=== PATIENT | male | born 1995 | race American Indian/Alaskan Native ===

== ENCOUNTER 2018-06-02 23:56 | Emergency (ER) | payer MEDICAID, OTHER ==
[2018-06-02 23:56] VITALS: BMI 21.4
[2018-06-03 00:10] VITALS: BP 124/66; PULSE 88; RESP 20; TEMP 98.2; O2SAT 97
[2018-06-03] MEDS ORDERED: Oxycodone/Acetaminophen 5/325 mg Tab PO STA (00:29)
[2018-06-03] MEDS ORDERED: Oxycodone/Acetaminophen 5/325 mg Tab ONE (00:38)
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
--- NOTE | 2018-06-03 09:00 | RAD ---
PROCEDURE: Right Hand Radiographs. HISTORY: r/o fracture COMPARISON: None. FINDINGS: BONES: There is in transverse fracture extending through the midshaft of the right 4th metacarpal with dorsal angulation/ displacement of the proximal aspect distal fracture fragment. There is mild surrounding soft tissue swelling. Old healed fracture deformity of the 1st metacarpal. Note also made of a small benign-appearing cystic focus within proximal radial aspect of the lunate bone JOINTS: Normal. No osteoarthritic changes. SOFT TISSUES: Normal. OTHER FINDINGS: None. IMPRESSION: There is in transverse fracture extending through the midshaft of the right 4th metacarpal with dorsal angulation/ displacement of the proximal aspect distal fracture fragment. There is mild surrounding soft tissue swelling. Old healed fracture deformity of the 1st metacarpal.
== END 2018-06-03 01:18 | disposition home or self-care (01) ==
LOC: C.ER 23:56
DX: S62.324A Displaced fracture of shaft of fourth metacarpal bone, right hand, initial encounter for closed fracture (principal); W22.8XXA Striking against or struck by other objects, initial encounter; Y93.64 Activity, baseball; Y92.39 Other specified sports and athletic area as the place of occurrence of the external cause

== ENCOUNTER 2018-06-04 22:06 | Emergency (ER) | payer OTHER ==
[2018-06-04 22:06] VITALS: BMI 21.4
[2018-06-04 22:20] VITALS: BP 113/70; PULSE 80; RESP 20; TEMP 99; O2SAT 100
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
== END 2018-06-05 00:22 | disposition home or self-care (01) ==
LOC: C.ER 22:06
DX: S62.324D Displaced fracture of shaft of fourth metacarpal bone, right hand, subsequent encounter for fracture with routine healing (principal); W22.8XXD Striking against or struck by other objects, subsequent encounter

== ENCOUNTER 2018-06-14 07:59 | Day surgery (SDC) | payer SELFPAY ==
[2018-06-10 14:31] VITALS: BMI 22.8
[2018-06-14] MEDS ORDERED: ceFAZolin 1 gm in NS 1 GM/100 ML BAG IVPB ONE (08:32)
[2018-06-14] MEDS ORDERED: Bupivacaine HCl 0.5% PF (30 ml) Inj ONE (08:32)
[2018-06-14] MEDS ORDERED: Propofol 10 mg/ml Inj (20 ML) ONE (09:28)
[2018-06-14] MEDS ORDERED: Midazolam 2 MG/2 ML VIAL ONE (09:28)
[2018-06-14] MEDS ORDERED: Lidocaine 1% 20 MG/2 ML PF AMP ONE (09:47)
[2018-06-14] MEDS ORDERED: HYDROmorphone 0.5 mg/0.5 ml ISec IVP PRN ×3 (10:02→12:10)
--- NOTE | 2018-06-14 11:24 | PCM.SURG1 ---
Surgeon's Initial Post Op Note - Surgeon's Notes Surgeon: Dr. Carpenter Relief Map Modeler: Monique CHACONY2, Love GARCIA Type of Anesthesia: General LMA, Block Regional Anesthesia Administered By: Isa SEVILLA Pre-Operative Diagnosis: Right 4th metacarpal fracture Operative Findings: Right 4th metacarpal fracture Post-Operative Diagnosis: Right 4th metacarpal fracture Operation Performed: K-wire fixation of Right 4th metacarpal fracture Specimen/Specimens Removed: N/A Estimated Blood Loss: EBL {In ML}: 2 Blood Products Given: N/A Drains Used: No Drains Post-Op Condition: Good Date of Surgery/Procedure: 06/14/18 Time of Surgery/Procedure: 11:24
[2018-06-14] MEDS ORDERED: Lactated Ringer's 1,000 ML IV ONE (12:15)
[2018-06-14 13:17] VITALS: O2SAT 100
[2018-06-14 15:51] VITALS: BP 117/48; PULSE 82; RESP 18; TEMP 97.8
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
== END 2018-06-14 14:50 | disposition home or self-care (01) ==
LOC: C.SDS 07:59 → MERGE 07:59 → C.SDS 14:50
PROVIDERS: ATTEND Plastic Surgery Surgery of the Hand
DX: S62.322A Displaced fracture of shaft of third metacarpal bone, right hand, initial encounter for closed fracture (principal); W22.8XXA Striking against or struck by other objects, initial encounter
CPT/HCPCS: 26615; C1713; J0690; J1170; J2250; J2704; J3010; J7120

== ENCOUNTER 2018-12-04 15:51 | Emergency (ER) | payer MEDICAID, SELFPAY ==
[2018-12-04 15:51] VITALS: BMI 21.4
== END 2018-12-04 16:25 | disposition left against medical advice (07) ==
LOC: C.ER 15:51
DX: Z02.89 Encounter for other administrative examinations (principal); R10.9 Unspecified abdominal pain